=== PATIENT | male | born 1995 | race American Indian/Alaskan Native ===

== ENCOUNTER 2017-02-14 18:46 | Emergency (ER) | payer MEDICAID ==
[2017-02-14 18:54] VITALS: BMI 23.6
[2017-02-14] MEDS ORDERED: TDAP Vaccine 0.5 mL Syr IM ONE (18:57)
[2017-02-14 19:01] VITALS: TEMP 98.7
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
[2017-02-14] MEDS ORDERED: Lidocaine 1% Inj (20ml) ONE (20:04)
[2017-02-14 21:44] VITALS: BP 138/80; PULSE 94; RESP 16; O2SAT 98
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
== END 2017-02-14 21:49 | disposition home or self-care (01) ==
LOC: ED 18:46
DX: S01.112A Laceration without foreign body of left eyelid and periocular area, initial encounter (principal); Y04.2XXA Assault by strike against or bumped into by another person, initial encounter; Y92.9 Unspecified place or not applicable; Z23 Encounter for immunization

== ENCOUNTER 2017-02-19 20:28 | Emergency (ER) | payer MEDICAID, OTHER ==
[2017-02-19 20:29] VITALS: BMI 23.6
[2017-02-19 20:37] VITALS: BP 118/66; PULSE 62; RESP 18; TEMP 98.6; O2SAT 99
--- NOTE | 2017-02-19 21:09 | ED PDOC ---
Arrival/HPI - General Chief Complaint: Wound Check Time Seen by Provider: 02/19/17 20:52 Historian: Patient - History of Present Illness Narrative History of Present Illness (Text): 02/19/17 21:05 21 y/o male, here for the suture removal from the lt. eyebrow x 5 days. Pt. stated that he has 8 stiches, no fever or chills, healing well and dry, no headache or dizziness, no other medical or psychological complaints. Past Medical History - Provider Review Nursing Documentation Reviewed: Yes - Infectious Disease Hx of Infectious Diseases: None - Tetanus Immunization Tetanus Immunization: Unknown - Pulmonary Hx Asthma: Yes - Psychiatric Hx Substance Use: No - Anesthesia Hx Anesthesia: No - Suicidal Assessment Feels Threatened In Home Enviroment: No Family/Social History - Physician Review Nursing Documentation Reviewed: Yes Family/Social History: Unknown Family HX Smoking Status: Never Smoked Hx Alcohol Use: No Hx Substance Use: No Allergies/Home Meds Allergies/Adverse Reactions: Allergies No Known Allergies Allergy (Verified 01/30/14 17:40) Home Medications: Home Meds Medication Instructions Recorded Confirmed Albuterol 0.5% [Albuterol 0.5% 3 ml IH PRN PRN 02/14/17 02/14/17 Inhal Shayy (2.5 mg/0.5 ml) UD] Review of Systems - Review of Systems Constitutional: absent: Fatigue, Fevers Eyes: absent: Vision Changes Respiratory: absent: Cough, Sputum Cardiovascular: absent: Chest Pain Gastrointestinal: absent: Abdominal Pain, Nausea, Vomiting Skin: Laceration (healed lt eyebrow laceration wound with 8 stiches, no cellulitis or streaking, no ulcers, no signs of infection. ). absent: Rash, Pruritis, Skin Lesions Physical Exam Vital Signs Reviewed: Yes Vital Signs Temp Pulse Resp BP Pulse Ox 02/19/17 20:34 98.6 F 62 18 118/66 99 Temperature: Afebrile Blood Pressure: Normal Pulse: Regular Respiratory Rate: Normal Appearance: Positive for: Well-Appearing, Non-Toxic, Comfortable Pain Distress: None Mental Status: Positive for: Alert and Oriented X 3 - Systems Exam Head: Present: Atraumatic Pupils: Present: PERRL Extroacular Muscles: Present: EOMI Conjunctiva: Present: Normal Mouth: Present: Moist Mucous Membranes Neck: Present: Normal Range of Motion Respiratory/Chest: Present: Clear to Auscultation, Good Air Exchange. No: Respiratory Distress, Accessory Muscle Use Cardiovascular: Present: Regular Rate and Rhythm, Normal S1, S2. No: Murmurs Abdomen: Present: Normal Bowel Sounds. No: Tenderness, Distention, Peritoneal Signs Back: Present: Normal Inspection Upper Extremity: Present: Normal Inspection. No: Cyanosis, Edema Lower Extremity: Present: Normal Inspection. No: Edema Neurological: Present: GCS=15, Speech Normal Skin: Present: Warm, Dry, Normal Color, Other (Lt. eyebrow visible 8 stiches noted with no cellulitis or streaking, wound intact. ). No: Rashes Psychiatric: Present: Alert, Oriented x 3, Normal Insight, Normal Concentration Medical Decision Making ED Course and Treatment: 02/19/17 21:08 -8 stiches removed with success, no signs of infection. -Discharge home with education on follow up with your own pmd within 2 days, return to the ER for any new or worsening signs or symptoms. - PA / HEALTH SCIENCE SPECIALIST / Resident Statement MD/DO has reviewed & agrees with the documentation as recorded. Disposition/Present on Arrival - Present on Arrival Any Indicators Present on Arrival: No History of DVT/PE: No History of Uncontrolled Diabetes: No Urinary Catheter: No History of Decub. Ulcer: No History Surgical Site Infection Following: None - Disposition Have Diagnosis and Disposition been Completed?: Yes Diagnosis: Visit for suture removal Disposition: HOME/ ROUTINE Disposition Time: 21:08 Patient Plan: Discharge Condition: GOOD Additional Instructions: Discharge home with education on follow up with your own pmd within 2 days, return to the ER for any new or worsening signs or symptoms. Referrals: PCP,NO [Primary Care Provider] - Follow up with primary Angie Manrique MD [Non-Staff] - [place] up with primary [facility] [place] [facility] [place] - Follow up with primary Forms: WORK NOTE
== END 2017-02-19 21:13 | disposition home or self-care (01) ==
LOC: ED 20:28
DX: Z48.02 Encounter for removal of sutures (principal)

== ENCOUNTER 2017-04-29 23:13 | Emergency (ER) | payer MEDICAID ==
[2017-04-29 23:25] VITALS: BP 145/85; RESP 16; BMI 21.4
[2017-04-30] MEDS ORDERED: cefTRIAXone (Rocephin) 250 mg Inj IM STA
--- NOTE | 2017-04-30 | ED PDOC ---
Arrival/HPI - General Chief Complaint: Male Genitourinary Time Seen by Provider: 04/30/17 00:00 Historian: Patient - History of Present Illness Narrative History of Present Illness (Text): 04/30/17 00:00 This 21 yo male presents to this ED c/o dysuria x 5 days ago, which lasted for 2 days, and penile rash x 3 days. Rash is pruritic, non-painful. Denies similar symptoms in the past. Denies testicular pain or penile discharge. Denies other complain. Time/Duration: < week Context: Home Past Medical History - Provider Review Nursing Documentation Reviewed: Yes - Infectious Disease Hx of Infectious Diseases: None - Tetanus Immunization Tetanus Immunization: Unknown - Pulmonary Hx Asthma: Yes - Psychiatric Hx Substance Use: No - Anesthesia Hx Anesthesia: No - Suicidal Assessment Feels Threatened In Home Enviroment: No Family/Social History - Physician Review Nursing Documentation Reviewed: Yes Family/Social History: No Known Family HX Smoking Status: Never Smoked Hx Alcohol Use: No Hx Substance Use: No Allergies/Home Meds Allergies/Adverse Reactions: Allergies No Known Allergies Allergy (Verified 01/30/14 17:40) Review of Systems - Review of Systems Constitutional: Normal. absent: Fatigue, Weight Change Eyes: Normal ENT: Normal Respiratory: Normal Cardiovascular: Normal Gastrointestinal: Normal Genitourinary Male: Dysuria, Other (Penile gland rash). absent: Frequency, Hematuria, Urinary Output Changes Musculoskeletal: Normal Skin: Normal Neurological: Normal Endocrine: Normal Hemo/Lymphatic: Normal Psychiatric: Normal Physical Exam Vital Signs Temp Pulse Resp BP Pulse Ox 04/30/17 02:21 16 99 04/30/17 00:00 97.0 F L 70 16 98 04/29/17 23:24 98.3 F 71 16 145/85 98 Temperature: Afebrile Blood Pressure: Normal Pulse: Regular Respiratory Rate: Normal Appearance: Positive for: Well-Appearing, Non-Toxic, Comfortable Pain Distress: None Mental Status: Positive for: Alert and Oriented X 3 - Systems Exam Head: Present: Atraumatic, Normocephalic Pupils: Present: PERRL Extroacular Muscles: Present: EOMI Conjunctiva: Present: Normal Mouth: Present: Moist Mucous Membranes Neck: Present: Normal Range of Motion Respiratory/Chest: Present: Clear to Auscultation. No: Wheezes, Rales Cardiovascular: Present: Regular Rate and Rhythm, Normal S1, S2. No: Murmurs Abdomen: Present: Normal Bowel Sounds. No: Tenderness, Distention, Peritoneal Signs, Rebound, Guarding Genitourinary Male: Present: Circumcised Penis, Other ((+) mild balanitis, with rash. Rash is nottender on palpation). No: Penile Discharge, Testicle Tenderness, Penile Swelling, Masses, Testicle Swelling Back: Present: Normal Inspection. No: CVA Tenderness Upper Extremity: Present: Normal Inspection, Normal ROM, NORMAL PULSES, Neurovascularly Intact, Capillary Refill < 2s Lower Extremity: Present: Normal Inspection, NORMAL PULSES, Normal ROM, Neurovascularly Intact, Capillary Refill < 2 s. No: Edema, CALF TENDERNESS Neurological: Present: GCS=15, CN II-XII Intact, Speech Normal Skin: Present: Warm, Normal Color. No: Dry, Rashes Psychiatric: Present: Alert, Oriented x 3 Medical Decision Making ED Course and Treatment: 04/30/17 02:15 Re-evaluation. Patient feels better. Discussed results and plan with patient who expresses understanding. All questions answered and there is agreement with the plan to discharge home with instructions. Patient stable for discharge. Return if symptoms persist or worsen. Re-evaluation Time: 02:15 Reassessment Condition: Re-examined, Improved - Lab Interpretations Lab Results: Lab Results 04/30/17 01:37: Urine Color Yellow, Urine Appearance Clear, Urine pH 7.0, Ur Specific [place] 1.020, Urine Protein Negative, Urine Glucose (UA) Negative, Urine Ketones Negative, Urine Blood Negative, Urine Nitrate Negative, Urine Bilirubin Negative, Urine Urobilinogen 1.0 H, Ur Leukocyte Esterase Negative 04/30/17 01:37: C.trachomatis RNA (TMA) Not detected, N.gonorrhoeae RNA (TMA) Not detected - Medication Orders Current Medication Orders: Discontinued Medications Azithromycin (Zithromax) 1,000 mg PO STAT STA PRN Reason: Protocol Stop: 04/30/17 00:02 Last Admin: 04/30/17 00:57 Dose: 1,000 mg Ceftriaxone Sodium (Rocephin) 250 mg IM STAT STA PRN Reason: Protocol Stop: 04/30/17 00:01 Last Admin: 04/30/17 00:57 Dose: 250 mg Nystatin (Mycostatin Cream) 1 ea TOP STAT STA Stop: 04/30/17 00:03 Last Admin: 04/30/17 00:57 Dose: 1 applic Disposition/Present on Arrival - Present on Arrival Any Indicators Present on Arrival: No History of DVT/PE: No History of Uncontrolled Diabetes: No Urinary Catheter: No History of Decub. Ulcer: No History Surgical Site Infection Following: None - Disposition Have Diagnosis and Disposition been Completed?: Yes Diagnosis: Balanitis, Dysuria Disposition: HOME/ ROUTINE Disposition Time: 02:16 Patient Plan: Discharge Condition: GOOD Discharge Instructions (ExitCare): Dysuria (ED) Additional Instructions: Call private doctor for follow up visit. Take medication as instructed. Return to emergency if symptoms worsen. Prescriptions: Nystatin [Mycostatin Cream] 1 appl TP BID #1 tube Referrals: Celina Coffman MD [Staff Provider] - Follow up with primary Forms: WORK NOTE
[2017-04-30] MEDS ORDERED: Nystatin 100,000 Units/gm Cream(15 gm) TOP STA (00:02)
[2017-04-30 01:55] VITALS: PULSE 70; TEMP 97
[2017-04-30 02:03] LABS: URINE BILIRUBIN NEGATIVE (NEGATIVE); URINE BLOOD NEGATIVE (NEGATIVE); URINE GLUCOSE (UA) NEGATIVE (NEGATIVE); URINE LEUKOCYTE ESTERASE NEGATIVE Leu/uL (NEGATIVE); URINE NITRATE NEGATIVE (NEGATIVE); URINE PROTEIN NEGATIVE mg/dL (<30 mg/dL)
[2017-04-30 02:13] LABS: URINE APPEARANCE CLEAR (CLEAR); URINE COLOR YELLOW (YELLOW)
[2017-04-30 02:22] VITALS: O2SAT 99
== END 2017-04-30 02:22 | disposition home or self-care (01) ==
LOC: ED 23:13
DX: N48.1 Balanitis (principal); R30.0 Dysuria
CPT/HCPCS: 81003; 87491; 87591; 96372; 99283; J0696

== ENCOUNTER 2017-06-17 20:40 | Emergency (ER) | payer MEDICAID ==
[2017-06-17 20:40] VITALS: BMI 21.4
[2017-06-17 21:22] VITALS: PULSE 89
--- NOTE | 2017-06-17 21:44 | ED PDOC ---
Arrival/HPI - General Chief Complaint: Male Genitourinary Time Seen by Provider: 06/17/17 21:01 Historian: Patient - History of Present Illness Narrative History of Present Illness (Text): 06/17/17 21:44 Hernando Cason is a 22 year old male who presents to the Emergency department for evaluation of lesions to his penis/ Patient states he is sexually active. Patient denies any fever, chills, abdominal pain, nausea, vomiting, diarrhea, urinary symptoms, penile discharge, or any other complaints. Symptom Onset: Gradual Symptom Course: Unchanged Activities at Onset: Rest, Light Context: Home Past Medical History - Provider Review Nursing Documentation Reviewed: Yes - Infectious Disease Hx of Infectious Diseases: None - Tetanus Immunization Tetanus Immunization: Unknown - Pulmonary Hx Asthma: Yes - Psychiatric Hx Substance Use: No - Anesthesia Hx Anesthesia: No - Suicidal Assessment Feels Threatened In Home Enviroment: No Family/Social History - Physician Review Nursing Documentation Reviewed: Yes Family/Social History: Unknown Family HX Smoking Status: Never Smoked Hx Alcohol Use: No Hx Substance Use: No Allergies/Home Meds Allergies/Adverse Reactions: Allergies No Known Allergies Allergy (Verified 06/17/17 21:22) Review of Systems - Physician Review All systems were reviewed & negative as marked: Yes - Review of Systems Constitutional: Normal. absent: Fevers Eyes: Normal ENT: Normal Respiratory: Normal. absent: SOB, Cough Cardiovascular: Normal. absent: Chest Pain Gastrointestinal: Normal. absent: Abdominal Pain, Diarrhea, Nausea, Vomiting Genitourinary Male: Other (+lesions to penis). absent: Dysuria, Frequency, Hematuria, Urinary Output Changes Musculoskeletal: Normal. absent: Back Pain, Neck Pain Skin: Normal. absent: Rash Neurological: Normal. absent: Headache, Dizziness Endocrine: Normal Hemo/Lymphatic: Normal Psychiatric: Normal Physical Exam Vital Signs Reviewed: Yes Vital Signs Temp Pulse Resp BP Pulse Ox 06/17/17 22:05 18 98 06/17/17 21:55 98.5 F 89 16 129/70 98 06/17/17 21:17 89 18 141/84 99 Temperature: Afebrile Blood Pressure: Normal Pulse: Regular Respiratory Rate: Normal Appearance: Positive for: Well-Appearing, Non-Toxic, Comfortable Pain Distress: None Mental Status: Positive for: Alert and Oriented X 3 - Systems Exam Head: Present: Atraumatic, Normocephalic Pupils: Present: PERRL Extroacular Muscles: Present: EOMI Conjunctiva: Present: Normal Mouth: Present: Moist Mucous Membranes Neck: Present: Normal Range of Motion Respiratory/Chest: Present: Clear to Auscultation, Good Air Exchange. No: Respiratory Distress, Accessory Muscle Use Cardiovascular: Present: Regular Rate and Rhythm, Normal S1, S2. No: Murmurs Abdomen: Present: Normal Bowel Sounds. No: Tenderness, Distention, Peritoneal Signs Genitourinary Male: Present: Lesions (Few vesicular lesions to glans penis). No : Penile Discharge Back: Present: Normal Inspection Upper Extremity: Present: Normal Inspection. No: Cyanosis, Edema Lower Extremity: Present: Normal Inspection. No: Edema Neurological: Present: GCS=15, CN II-XII Intact, Speech Normal Skin: Present: Warm, Dry, Normal Color. No: Rashes Psychiatric: Present: Alert, Oriented x 3, Normal Insight, Normal Concentration Medical Decision Making ED Course and Treatment: 06/17/17 21:44 Impression: 22 year old male complaining of lesions to penis. Differential Diagnosis included but are not limited to: herpes Plan: -- Zovirax -- Reassess and disposition Progress Notes: On reevaluation the patient is well-appearing, in no acute distress. I have discussed the results and plan with the patient, who expresses understanding. Patient given the opportunity to ask question, all questions were answered and there is agreement with the plan to discharge the patient home. Patient is stable for discharge. Patient was instructed to follow up with physician/clinic in 1-2 days or return if symptoms persist/worsen or new concerning symptoms arise. - Medication Orders Current Medication Orders: Discontinued Medications Acyclovir (Zovirax) 400 mg PO ONCE ONE PRN Reason: Protocol Stop: 06/17/17 21:54 Last Admin: 06/17/17 22:05 Dose: 400 mg - Scribe Statement Manuela Davis Provider Scribe Attestation: All medical record entries made by the Scribe were at my direction and personally dictated by me. I have reviewed the chart and agree that the record accurately reflects my personal performance of the history, physical exam, medical decision making, and the department course for this patient. I have also personally directed, reviewed, and agree with the discharge instructions and disposition. Disposition/Present on Arrival - Present on Arrival Any Indicators Present on Arrival: No History of DVT/PE: No History of Uncontrolled Diabetes: No Urinary Catheter: No History of Decub. Ulcer: No History Surgical Site Infection Following: None - Disposition Have Diagnosis and Disposition been Completed?: Yes Diagnosis: Genital herpes Disposition: HOME/ ROUTINE Disposition Time: 21:54 Patient Plan: Discharge Condition: GOOD Discharge Instructions (ExitCare): Genital Herpes Simplex (ED) Additional Instructions: Take meds as prescribed/avoid sexual intercourse/follow up with your doctor this week Prescriptions: Acyclovir 400 mg PO TID #21 tablet Forms: [facility] ([place])
[2017-06-17 21:56] VITALS: BP 129/70; TEMP 98.5; O2SAT 98
[2017-06-17 22:19] VITALS: RESP 18
== END 2017-06-17 22:05 | disposition home or self-care (01) ==
LOC: ED 20:40
DX: A60.00 Herpesviral infection of urogenital system, unspecified (principal)
CPT/HCPCS: 99283; J8499

== ENCOUNTER 2017-09-13 00:37 | Emergency (ER) | payer MEDICAID ==
[2017-09-13 01:16] VITALS: BMI 23.6
--- NOTE | 2017-09-13 01:16 | ED PDOC ---
Arrival/HPI - General Time Seen by Provider: 09/13/17 00:49 Historian: Patient - History of Present Illness Narrative History of Present Illness (Text): 09/13/17 01:12 22yo male with no PMHx present with 2weeks history of right sided upper molar toothache. States he was taking OTC analgesic without relieve. He notes that he recently acquire insurance and plan to see a Dentist next week. Denies fever, chills, any other complaint. Past Medical History - Provider Review Nursing Documentation Reviewed: Yes - Infectious Disease Hx of Infectious Diseases: None - Tetanus Immunization Tetanus Immunization: Unknown - Pulmonary Hx Asthma: Yes - Psychiatric Hx Substance Use: No - Anesthesia Hx Anesthesia: No - Suicidal Assessment Feels Threatened In Home Enviroment: No Family/Social History - Physician Review Nursing Documentation Reviewed: Yes Family/Social History: Unknown Family HX Smoking Status: Never Smoked Hx Alcohol Use: No Hx Substance Use: No Allergies/Home Meds Allergies/Adverse Reactions: Allergies No Known Allergies Allergy (Verified 06/17/17 21:22) Review of Systems - Physician Review All systems were reviewed & negative as marked: Yes - Review of Systems Constitutional: Normal Eyes: Normal ENT: Other (Toothache) Respiratory: Normal Cardiovascular: Normal Gastrointestinal: Normal Genitourinary Male: Normal Musculoskeletal: Normal Skin: Normal Neurological: Normal Endocrine: Normal Hemo/Lymphatic: Normal Psychiatric: Normal Physical Exam Vital Signs Reviewed: Yes Temperature: Afebrile Blood Pressure: Normal Pulse: Regular Respiratory Rate: Normal Appearance: Positive for: Well-Appearing, Non-Toxic, Comfortable Pain Distress: None Mental Status: Positive for: Alert and Oriented X 3 - Systems Exam Head: Present: Atraumatic, Normocephalic Pupils: Present: PERRL Extroacular Muscles: Present: EOMI Conjunctiva: Present: Normal Mouth: Present: Moist Mucous Membranes, Normal Teeth (No loose tooth. No gingival swelling.) Neck: Present: Normal Range of Motion Respiratory/Chest: Present: Clear to Auscultation, Good Air Exchange. No: Respiratory Distress, Accessory Muscle Use Cardiovascular: Present: Regular Rate and Rhythm, Normal S1, S2. No: Murmurs Abdomen: Present: Normal Bowel Sounds. No: Tenderness, Distention, Peritoneal Signs Back: Present: Normal Inspection Upper Extremity: Present: Normal Inspection. No: Cyanosis, Edema Lower Extremity: Present: Normal Inspection. No: Edema Neurological: Present: GCS=15, CN II-XII Intact, Speech Normal Skin: Present: Warm, Dry, Normal Color. No: Rashes Psychiatric: Present: Alert, Oriented x 3, Normal Insight, Normal Concentration Disposition/Present on Arrival - Present on Arrival Any Indicators Present on Arrival: No History of DVT/PE: No History of Uncontrolled Diabetes: No Urinary Catheter: No History Surgical Site Infection Following: None - Disposition Have Diagnosis and Disposition been Completed?: Yes Diagnosis: Dental caries Disposition: HOME/ ROUTINE Disposition Time: : Patient Plan: Discharge Condition: STABLE Discharge Instructions (ExitCare): Dental Caries (ED) Additional Instructions: Follow up with a Dentist Return to Ed for any new or worsening symptoms Prescriptions: Amoxicillin 500 mg PO TID #21 tablet Ibuprofen [Motrin Tab] 600 mg PO Q6 #20 tab traMADol [Ultram] 50 mg PO TID #9 tab Referrals: Devante Zambrano DO [Staff Provider] - Follow up with primary
[2017-09-13 01:34] VITALS: BP 125/68; PULSE 88; RESP 18; TEMP 98.8; O2SAT 100
== END 2017-09-13 01:45 | disposition home or self-care (01) ==
LOC: ED 00:37
DX: K02.9 Dental caries, unspecified (principal)

== ENCOUNTER 2017-10-22 16:56 | Emergency (ER) | payer MEDICAID, OTHER ==
[2017-10-22 16:57] VITALS: BMI 23.6
[2017-10-22 17:16] VITALS: BP 154/91; PULSE 76; RESP 17; TEMP 97.8; O2SAT 95
--- NOTE | 2017-10-22 17:24 | ED PDOC ---
Arrival/HPI - General Chief Complaint: Dental Pain Time Seen by Provider: 10/22/17 17:03 Historian: Patient - History of Present Illness Narrative History of Present Illness (Text): 10/22/17 17:20 22yo male with no PMhx who present with complaint of right upper toothache x days. He was seen here last month for same complaint. He states he wasn't able to find to someone that takes his insurance, but finally found one that scheduled him for October 27. He states he was taking OTC Ibuprofen without relieve. He denies fever, headache any other complaint. Past Medical History - Provider Review Nursing Documentation Reviewed: Yes - Infectious Disease Hx of Infectious Diseases: None - Tetanus Immunization Tetanus Immunization: Unknown - Pulmonary Hx Asthma: Yes - Psychiatric Hx Substance Use: No - Anesthesia Hx Anesthesia: No Hx Anesthesia Reactions: No Hx Malignant Hyperthermia: No - Suicidal Assessment Feels Threatened In Home Enviroment: No Family/Social History - Physician Review Nursing Documentation Reviewed: Yes Family/Social History: Unknown Family HX Smoking Status: Never Smoked Hx Alcohol Use: No Hx Substance Use: No Allergies/Home Meds Allergies/Adverse Reactions: Allergies No Known Allergies Allergy (Verified 10/22/17 17:16) Review of Systems - Physician Review All systems were reviewed & negative as marked: Yes - Review of Systems Constitutional: Normal Eyes: Normal ENT: Other (toothache) Respiratory: Normal Cardiovascular: Normal Gastrointestinal: Normal Genitourinary Male: Normal Musculoskeletal: Normal Skin: Normal Neurological: Normal Endocrine: Normal Hemo/Lymphatic: Normal Psychiatric: Normal Physical Exam Vital Signs Reviewed: Yes Vital Signs Temp Pulse Resp BP Pulse Ox 10/22/17 17:16 97.8 F 76 17 154/91 H 95 10/22/17 17:15 97.8 F 76 17 154/91 H 95 Temperature: Afebrile Blood Pressure: Normal Pulse: Regular Respiratory Rate: Normal Appearance: Positive for: Well-Appearing, Non-Toxic, Comfortable Pain Distress: None Mental Status: Positive for: Alert and Oriented X 3 - Systems Exam Head: Present: Atraumatic, Normocephalic Pupils: Present: PERRL Extroacular Muscles: Present: EOMI Conjunctiva: Present: Normal Mouth: Present: Moist Mucous Membranes, Normal Teeth (No loose eva. No gingival swelling noted) Neck: Present: Normal Range of Motion Respiratory/Chest: Present: Clear to Auscultation, Good Air Exchange. No: Respiratory Distress, Accessory Muscle Use Cardiovascular: Present: Regular Rate and Rhythm, Normal S1, S2. No: Murmurs Abdomen: Present: Normal Bowel Sounds. No: Tenderness, Distention, Peritoneal Signs Back: Present: Normal Inspection Upper Extremity: Present: Normal Inspection. No: Cyanosis, Edema Lower Extremity: Present: Normal Inspection. No: Edema Neurological: Present: GCS=15, CN II-XII Intact, Speech Normal Skin: Present: Warm, Dry, Normal Color. No: Rashes Psychiatric: Present: Alert, Oriented x 3, Normal Insight, Normal Concentration Disposition/Present on Arrival - Present on Arrival Any Indicators Present on Arrival: No History of DVT/PE: No History of Uncontrolled Diabetes: No Urinary Catheter: No History of Decub. Ulcer: No History Surgical Site Infection Following: None - Disposition Have Diagnosis and Disposition been Completed?: Yes Diagnosis: Dental caries Disposition: HOME/ ROUTINE Disposition Time: 17:30 Patient Plan: Discharge Condition: STABLE Discharge Instructions (ExitCare): Dental Caries (ED) Additional Instructions: Pt in ED for stated history. He was hemodynamically stable and in no distress. He will be tx and Dc home with amox. He have appointment with a Dental surgeon and October 27 and was advised to keep his appointment. TRT ED for any new symptoms. Prescriptions: Amoxicillin [Amoxil 500 mg Cap] 500 mg PO TID #21 cap Ibuprofen [Motrin Tab] 800 mg PO Q6 #15 tab Referrals: [facility] [Outside] - Follow up with primary
== END 2017-10-22 17:56 | disposition home or self-care (01) ==
LOC: ED 16:56
DX: K08.89 Other specified disorders of teeth and supporting structures (principal)

== ENCOUNTER 2018-04-18 04:57 | Emergency (ER) | payer MEDICAID, OTHER ==
[2018-04-18 05:09] VITALS: RESP 16; TEMP 97.7; BMI 22.1
--- NOTE | 2018-04-18 05:14 | ED PDOC ---
Arrival/HPI - General Time Seen by Provider: 04/18/18 05:04 Historian: Patient - History of Present Illness Narrative History of Present Illness (Text): 04/18/18 05:11 22 year old male, with no significant past medical history, presents to the emergency department complaining of left lower first molar dental pain for 3 days. Patient denies any fevers, chills, chest pain, shortness of breath, abdominal pain, nausea, vomiting, diarrhea, back pain, neck pain, headache, dizziness, or any other complaint. Time/Duration: < week (3 days) Symptom Onset: Sudden Symptom Course: Unchanged Activities at Onset: Light Context: Home Past Medical History - Provider Review Nursing Documentation Reviewed: Yes - Infectious Disease Hx of Infectious Diseases: None - Tetanus Immunization Tetanus Immunization: Unknown - Pulmonary Hx Asthma: Yes - Psychiatric Hx Substance Use: No - Anesthesia Hx Anesthesia: No Hx Anesthesia Reactions: No Hx Malignant Hyperthermia: No - Suicidal Assessment Feels Threatened In Home Enviroment: No Family/Social History - Physician Review Nursing Documentation Reviewed: Yes Family/Social History: Unknown Family HX Smoking Status: Never Smoked Hx Alcohol Use: No Hx Substance Use: No Allergies/Home Meds Allergies/Adverse Reactions: Allergies No Known Allergies Allergy (Verified 04/18/18 05:13) Review of Systems - Physician Review All systems were reviewed & negative as marked: Yes - Review of Systems Constitutional: Normal Eyes: Normal ENT: Other (left lower first molar dental pain) Respiratory: Normal. absent: SOB, Cough Cardiovascular: Normal. absent: Chest Pain Gastrointestinal: Normal. absent: Abdominal Pain, Diarrhea, Nausea, Vomiting Genitourinary Male: Normal. absent: Dysuria, Frequency Musculoskeletal: Normal. absent: Back Pain, Neck Pain Skin: Normal. absent: Rash Neurological: Normal. absent: Headache, Dizziness Endocrine: Normal Hemo/Lymphatic: Normal Psychiatric: Normal Physical Exam Vital Signs Reviewed: Yes Vital Signs Temp Pulse Resp BP Pulse Ox 04/18/18 05:36 97.7 F 74 16 138/86 99 04/18/18 05:33 97.7 F 74 16 138/86 04/18/18 05:32 97.7 F 74 16 138/86 99 04/18/18 05:08 97.7 F 72 16 147/90 100 Temperature: Afebrile Blood Pressure: Normal Pulse: Regular Respiratory Rate: Normal Appearance: Positive for: Well-Appearing, Non-Toxic, Comfortable Pain Distress: None Mental Status: Positive for: Alert and Oriented X 3 - Systems Exam Head: Present: Atraumatic, Normocephalic Pupils: Present: PERRL Extroacular Muscles: Present: EOMI Conjunctiva: Present: Normal Mouth: Present: Moist Mucous Membranes. No: Normal Teeth (cracked left lower first molar tooth) Neck: Present: Normal Range of Motion. No: Meningeal Signs, MIDLINE TENDERNESS , Paraspinal Tenderness Respiratory/Chest: Present: Clear to Auscultation, Good Air Exchange. No: Respiratory Distress, Accessory Muscle Use Cardiovascular: Present: Regular Rate and Rhythm, Normal S1, S2. No: Murmurs Abdomen: No: Tenderness, Distention, Peritoneal Signs Back: Present: Normal Inspection Upper Extremity: Present: Normal Inspection. No: Cyanosis, Edema Lower Extremity: Present: Normal Inspection. No: Edema, CALF TENDERNESS Neurological: Present: GCS=15, CN II-XII Intact, Speech Normal Skin: Present: Warm, Dry, Normal Color. No: Rashes Psychiatric: Present: Alert, Oriented x 3, Normal Insight, Normal Concentration Medical Decision Making ED Course and Treatment: 04/18/18 05:13 Impression: 22 year old male presents to the emergency department complaining of left lower first molar dental pain for 3 days. Plan: -- Reassess and disposition Progress Notes: - Medication Orders Current Medication Orders: Discontinued Medications Amoxicillin (Amoxil 500 Mg Cap) 500 mg PO STAT STA PRN Reason: Protocol Stop: 04/18/18 05:21 Last Admin: 04/18/18 05:29 Dose: 500 mg Tramadol/Acetaminophen (Ultracet 37.5/325 Mg) 1 tab PO ONCE STA Stop: 04/18/18 05:21 Last Admin: 04/18/18 05:28 Dose: 1 tab [facility] Pain Assessment Document 04/18/18 05:28 (Rec: 04/18/18 05:29 [id number]) Pain Reassessment Is this a pain reassessment? No Sleep Is patient sleeping during reassessment? No Presence of Pain Presence of Pain Yes Pain Scale Used Pain Scale Used Numeric - Scribe Statement The provider has reviewed the documentation as recorded by the Scribsagrario Art All medical record entries made by the Scribe were at my direction and personally dictated by me. I have reviewed the chart and agree that the record accurately reflects my personal performance of the history, physical exam, medical decision making, and the department course for this patient. I have also personally directed, reviewed, and agree with the discharge instructions and disposition. Disposition/Present on Arrival - Present on Arrival Any Indicators Present on Arrival: No History of DVT/PE: No History of Uncontrolled Diabetes: No Urinary Catheter: No History Surgical Site Infection Following: None - Disposition Have Diagnosis and Disposition been Completed?: Yes Diagnosis: Pain, dental Disposition: HOME/ ROUTINE Disposition Time: 06:00 Condition: GOOD Discharge Instructions (ExitCare): Dental Pain (DC) Additional Instructions: follow up with your dentist fany Prescriptions: Amoxicillin 875 mg PO BID #14 tab Tramadol HCl [Ultram] 50 mg PO QID #8 tab Referrals: Mark Corrales MD, PhD [Primary Care Provider] - Follow up with primary Forms: [facility] ([place])
[2018-04-18] MEDS ORDERED: TraMADol/Apap 37.5/325 mg Tab PO STA (05:20)
[2018-04-18 05:33] VITALS: BP 138/86; PULSE 74; O2SAT 99
== END 2018-04-18 05:36 | disposition home or self-care (01) ==
LOC: ED 04:57
DX: K08.89 Other specified disorders of teeth and supporting structures (principal)